=== PATIENT | male | born 1950 | race Caucasian/White ===

== ENCOUNTER 2016-09-18 01:30 | Emergency (ER) | payer BC, OTHER ==
[~2016-09-18] VITALS: Ht 172.7 cm; Wt 77.7 kg
[2016-09-18 01:43] VITALS: BP 155/74; PULSE 67; RESP 18; TEMP 97.6; O2SAT 96
[2016-09-18 02:29] LABS: BLOOD, URINE NEG (NEG); GLUCOSE,URINE NEG (NEG); KETONE, URINE NEG (NEG); NITRITE,URINE NEG (NEG)
--- NOTE | 2016-09-18 02:31 | PD ---
HPI Chief Complaint: Complaint Time Seen by Provider: 02:01 Travel History International Travel<30 days: No Contact w/Intl Traveler<30days: No Traveled to known affect area: No History of Present Illness HPI 66-year-old male presents to the emergency department by private transportation for complaint of inability to urinate since 6 PM. Patient underwent hemorrhoidectomy on Friday. Patient does note that he has had some mild enlargement of his prostate in the past patient is encouraged come to the emergency room by his surgeon to have a urinary catheter placed. No fever no chills no nausea no vomiting no abdominal pain no flank pain. Patient is unable to identify exacerbating or alleviating factors. Patient states he has decreased oral intake to try to avoid producing urine. Presently pain 3/10 intensity. PFSH Past Medical History Narrative Medical Dyslipidemia hemorrhoidectomy BPH appendectomy occasional alcohol use nursing notes reviewed High Cholesterol: Yes Diminished Hearing: No Genitourinary: Yes (ENLARGED PROSTATE) Tetanus Vaccination: > 5 Years Influenza Vaccination: No Past Surgical History Appendectomy: Yes Other Surgery: Yes (HEMMOROIDECTOMY) Social History Alcohol Use: Yes (OCC) Tobacco Use: No Substance Use: No Allergies-Medications (Allergen,Severity, Reaction): Coded Allergies: No Known Allergies (Unverified , 09/18/16) Reported Meds & Prescriptions Reported Meds & Active Scripts Active No Active Prescriptions or Reported Medications Review of Systems Except as stated in HPI: all other systems reviewed are Neg General / Constitutional: No: Fever, Chills HENT: No: Congestion Cardiovascular: No: Chest Pain or Discomfort Respiratory: No: Shortness of Breath Gastrointestinal: No: Abdominal Pain Genitourinary: Positive: Decreased Urinary Output Musculoskeletal: No: Pain Skin: No Rash Neurologic: No: Weakness Psychiatric: No: Anxiety Hematologic/Lymphatic: No: Lymph Node Enlargement Physical Exam Narrative GENERAL: Well-developed well-nourished male in no acute distress no respiratory distress SKIN: Warm and dry. HEAD: Normocephalic. EYES: No scleral icterus. No injection or drainage. NECK: Supple, trachea midline. No JVD or lymphadenopathy. CARDIOVASCULAR: Regular rate and rhythm without murmurs, gallops, or rubs. RESPIRATORY: Breath sounds equal bilaterally. No accessory muscle use. GASTROINTESTINAL: Abdomen soft, non-tender, mild suprapubic distention. MUSCULOSKELETAL: No cyanosis, or edema. BACK: Nontender without obvious deformity. No CVA tenderness. Data Data Last Documented VS Vital Signs Date Time Temp Pulse Resp B/P Pulse Ox O2 Delivery O2 Flow Rate FiO2 09/18/16 03:42 67 18 145/72 96 Room Air 09/18/16 01:43 97.6 Orders Urinary Catheter Insert/Apply (09/18/16 02:01) Urinalysis - C+S If Indicated (09/18/16 02:01) Bag, Leg 32oz Sterile Large Ea (09/18/16 02:31) Labs Laboratory Tests Test 09/18/16 02:00 Urine Collection Type CLEAN CATCH Urine Color YELLOW Urine Turbidity CLEAR Urine pH 6.0 Urine Specific [place] 1.016 Urine Protein NEG mg/dL Urine Glucose (UA) NEG mg/dL Urine Ketones NEG mg/dL Urine Occult Blood NEG Urine Nitrite NEG Urine Bilirubin NEG Urine Leukocyte Esterase NEG Urine RBC 0-3 /hpf Urine WBC 0-2 /hpf Urine Squamous Epithelial 0-5 /hpf Cells Urine Bacteria RARE /hpf Urine Mucus OCC /lpf Microscopic Urinalysis Comment CULT NOT INDICATED MDM Medical Decision Making Medical Screen Exam Complete: Yes Emergency Medical Condition: Yes Medical Record Reviewed: Yes Interpretation(s) UA: wnl Differential Diagnosis Urinary retention, dehydration, renal insufficiency, UTI Narrative Course Urinary catheter inserted; 400 cc urine output Diagnosis Primary Impression: Urinary retention Referrals: Primary Care Physician call for appointment Patient Instructions: General Instructions Additional Instructions: Follow-up with your managing provider and primary care physician Return to the emergency department for any concerns or change in condition Increase fluid hydration Take acetaminophen/Tylenol as needed for fever 100.4F or greater neck sign Scripts No Active Prescriptions or Reported Meds Disposition: 01 DISCHARGE HOME Condition: Stable Sasha Harmon MD Sep 18, 2016 02:31 Sasha Harmon MD Sep 18, 2016 02:31
[2016-09-18 02:37] LABS: METHOD OF COLLECTION CLEAN CATCH; MUCUS URINE OCC /lpf (OCC); SQUAMOUS EPITHELIAL CELL URINE 0-5 /hpf (0-5); URINE COLOR YELLOW (YELLW/STRAW)
[2016-09-18 02:38] LABS: RBC, URINE 0-3 /hpf (0-3); WBC, URINE 0-2 /hpf (0-5)
[2016-09-18 02:39] LABS: BACTERIA, URINE RARE /hpf; COMMENT (UR) CULT NOT INDICATED; CULTURE IF INDICATED CULT NOT INDICATED
[2016-09-18 03:42] VITALS: BP 145/72; PULSE 67; RESP 18; O2SAT 96
== END 2016-09-18 03:45 | disposition home or self-care (01) ==
LOC: PHED 01:30
DX: R33.9 Retention of urine, unspecified (principal); E78.5 Hyperlipidemia, unspecified; E78.00 Pure hypercholesterolemia, unspecified; N40.0 Benign prostatic hyperplasia without lower urinary tract symptoms; N99.89 Other postprocedural complications and disorders of genitourinary system
CPT/HCPCS: 51702; 81001

== ENCOUNTER 2016-09-23 19:06 | Emergency (ER) | payer OTHER ==
[~2016-09-23] VITALS: Ht 172.7 cm; Wt 77.4 kg
[2016-09-23 19:16] VITALS: BP 147/81; PULSE 75; RESP 18; TEMP 98.3; O2SAT 96
[2016-09-23] MEDS ORDERED: META48.53 PO (19:38)
[2016-09-23] MEDS ORDERED: PERC5TAB12 PO (19:38)
[2016-09-23 20:17] LABS: BLOOD, URINE NEG (NEG); GLUCOSE,URINE NEG (NEG); KETONE, URINE NEG (NEG); NITRITE,URINE NEG (NEG)
[2016-09-23 20:36] LABS: URINE COLOR YELLOW (YELLW/STRAW)
[2016-09-23 20:37] LABS: COMMENT (UR) CULT NOT INDICATED; CULTURE IF INDICATED CULT NOT INDICATED; RBC, URINE 0-3 /hpf (0-3); SQUAMOUS EPITHELIAL CELL URINE 0-5 /hpf (0-5); WBC, URINE 0-2 /hpf (0-5)
--- NOTE | 2016-09-23 20:48 | PD ---
HPI Chief Complaint: Complaint Time Seen by Provider: 20:43 Travel History International Travel<30 days: No Contact w/Intl Traveler<30days: No Traveled to known affect area: No History of Present Illness HPI 66-year-old male presents to the emergency department for urinary retention. Patient complains of significant pressure. Patient had urinary catheter removed today at his colorectal surgeon's office at 9 AM as follow-up status post hemorrhoidectomy and since urinary catheter removal has not had urine output and presents for discomfort. No hematuria no fever chills. Patient was encouraged come to the emergency department by his colorectal surgeon for urinary catheter replacement. Patient rates his pain 5/10 in intensity PFSH Past Medical History Narrative Medical Dyslipidemia, hemorrhoidectomy, appendectomy, urinary retention, BPH, occasional alcohol use; nursing notes reviewed High Cholesterol: Yes Diminished Hearing: No Genitourinary: Yes (ENLARGED PROSTATE) Tetanus Vaccination: < 5 Years Influenza Vaccination: No Past Surgical History Appendectomy: Yes Other Surgery: Yes (HEMMOROIDECTOMY) Social History Alcohol Use: Yes (OCC) Tobacco Use: No Substance Use: No Allergies-Medications (Allergen,Severity, Reaction): Coded Allergies: No Known Allergies (Unverified , 09/23/16) Reported Meds & Prescriptions Reported Meds & Active Scripts Active Reported Metamucil Original Texture (Psyllium Hydrophilic Mucilloid) 48.57 % Pow 1 Scoop PO TID PRN 1 rounded [place] in 8 oz of liquid at the first sign of irregularity. Percocet (Oxycodone-Acetaminophen) 5-325 mg Tab 1 Tab PO Q6H PRN Review of Systems General / Constitutional: No: Fever, Chills Cardiovascular: No: Chest Pain or Discomfort Respiratory: No: Shortness of Breath Gastrointestinal: Positive: Abdominal Pain Genitourinary: Positive: Decreased Urinary Output (suprapubic pressure) Musculoskeletal: No: Myalgias, Arthralgias Skin: No Rash Neurologic: No: Weakness Psychiatric: Positive: Anxiety Hematologic/Lymphatic: No: Lymph Node Enlargement Physical Exam Narrative GENERAL: Well-developed well-nourished male in no respiratory distress SKIN: Warm and dry. HEAD: Normocephalic. EYES: No scleral icterus. No injection or drainage. NECK: Supple, trachea midline. No JVD or lymphadenopathy. CARDIOVASCULAR: Regular rate and rhythm without murmurs, gallops, or rubs. RESPIRATORY: Breath sounds equal bilaterally. No accessory muscle use. GASTROINTESTINAL: Abdomen soft, mild diffuse bilateral lower quadrant tenderness to palpation without guarding or rebound nondistended. : Circumcised male urinary catheter in place MUSCULOSKELETAL: No cyanosis, or edema. BACK: Nontender without obvious deformity. No CVA tenderness. Data Data Last Documented VS Vital Signs Date Time Temp Pulse Resp B/P Pulse Ox O2 Delivery O2 Flow Rate FiO2 09/23/16 19:33 74 18 09/23/16 19:16 98.3 147/81 96 Orders Urinary Catheter Insert/Apply (09/23/16 19:54) Urinalysis - C+S If Indicated (09/23/16 19:54) Labs Laboratory Tests Test 09/23/16 20:00 Urine Color YELLOW Urine Turbidity CLEAR Urine pH 6.0 Urine Specific [place] 1.020 Urine Protein NEG mg/dL Urine Glucose (UA) NEG mg/dL Urine Ketones NEG mg/dL Urine Occult Blood NEG Urine Nitrite NEG Urine Bilirubin NEG Urine Leukocyte Esterase NEG Urine RBC 0-3 /hpf Urine WBC 0-2 /hpf Urine Squamous Epithelial 0-5 /hpf Cells Urine Bacteria NONE /hpf Microscopic Urinalysis Comment CULT NOT INDICATED MDM Medical Decision Making Medical Screen Exam Complete: Yes Emergency Medical Condition: Yes Medical Record Reviewed: Yes Interpretation(s) Urinalysis: Values are in normal range Differential Diagnosis Urinary retention UTI postoperative pain Narrative Course Presents to the emergency department for urinary retention since 9 AM after having his urinary catheter report removed by his colorectal surgeon this morning; nurse encouraged to place urinary catheter and will re-assess patient post catheter placement Urinary catheter inserted with 600 cc urine output; urinalysis sent Urinalysis found to be in normal range patient stable for outpatient management Diagnosis Primary Impression: Urinary retention Referrals: Primary Care Physician 1 day Patient Instructions: General Instructions Additional Instructions: Increase fluid hydration Follow-up with your specialist as scheduled Return to the emergency department for any concerns or change in condition Take acetaminophen as needed for fever 100.4 days Fahrenheit or greater Med/Other Pt SpecificInfo: No Change to Meds Disposition: 01 DISCHARGE HOME Condition: Stable Sasha Harmon MD Sep 23, 2016 20:48
[2016-09-23 21:28] VITALS: BP 142/86; PULSE 82; RESP 18; O2SAT 98
== END 2016-09-23 21:32 | disposition home or self-care (01) ==
LOC: PHED 19:06
DX: R33.9 Retention of urine, unspecified (principal); E78.5 Hyperlipidemia, unspecified; Z98.890 Other specified postprocedural states; Z87.438 Personal history of other diseases of male genital organs
CPT/HCPCS: 51702; 81001